=== PATIENT | female | born 1990 | race Caucasian/White ===

== ENCOUNTER 2018-09-27 08:14 | Inpatient (IN) | payer BC ==
[2018-09-27] MEDS ORDERED: PROMETHAZINE 25 MG/ML VIAL IM PRN (08:45)
[2018-09-27] MEDS ORDERED: METHYLERGONOVINE 0.2MG/ML AMP IM PRN (08:45)
[2018-09-27] MEDS ORDERED: CARBOPROST TROME 250 MCG/ML IM PRN (08:45)
[2018-09-27] MEDS ORDERED: Ringers Lactate 1,000 ML IV PRN (08:45)
[2018-09-27] MEDS ORDERED: BUTORPHANOL 1 MG/ML INJ IV PRN (08:45)
[2018-09-27] MEDS ORDERED: Ringers Lactate 1,000 ML IV SCH (09:00)
[2018-09-27] MEDS ORDERED: OXYTOCIN/LR 20 UNIT/1,000 ML BAG IV SCH ×2 (09:00→10:00)
[2018-09-27] MEDS ORDERED: IBUPROFEN 200 MG TAB PO PRN (09:23)
[2018-09-27] MEDS ORDERED: BISACODYL 10 MG RECTAL SUPP RECT PRN (09:23)
[2018-09-27] MEDS ORDERED: Oxycodone HCl/Acetaminophen 1 TAB TAB PO PRN ×2 (09:23)
[2018-09-27] MEDS ORDERED: ACETAMINOPHEN 500 MG TAB PO PRN (09:23)
[2018-09-27] MEDS ORDERED: DOCUSATE NA/SENNA CONC 1 TAB PO PRN (09:23)
[2018-09-27] MEDS ORDERED: DIPHENHYDRAMINE 25 MG TAB/CAP PO PRN (09:23)
[2018-09-27 10:03] VITALS: BMI 34.9
[2018-09-27] MEDS ORDERED: OXYTOCIN/LR 20 UNIT/1,000 ML BAG IV ONE (10:21)
[2018-09-27] MEDS ORDERED: LIDOCAINE 1% MPF 30 ML VIAL ONE (10:21)
[2018-09-27] MEDS ORDERED: METHYLERGONOVINE 0.2MG/ML AMP IM ONE (10:21)
[2018-09-27 11:54] LABS: RPR Titer ND
[2018-09-27 11:59] LABS: Absolute Lymphocytes (CBC) 0.9 K/uL (0.7-4.9); Basophils % 0.2 % (0-1.3); Eosinophils % 0.1 % (0-4.4); Hematocrit 44.9 % (36.0-45.0); Lymphocytes % 4.6 % (15.3-44.8); MPV 10.7 fL (7.6-11.3); Monocytes % 3.3 % (3.3-12.3); RBC Red Blood Cell Count 5.07 M/uL (3.86-4.86)
[2018-09-27] MEDS: METHYLERGONOVINE 0.2 MG TAB PO PRN ×3 (12:00→20:21)
[2018-09-27 12:54] LABS: Blood Morphology Comment NOT SEEN (NOT SEEN); Platelet Estimate ADEQ
--- NOTE | 2018-09-27 20:17 | OP ---
Surgeon: Jonny Steel MD A 28-year-old primigravida, patient of Dr. Larose, followed antepartum without complications. Rh positive, immune to Rubella. Negative beta strep screen. Came in yesterday with suspected rupture o f membranes, testing was negative. She was sent home. Came home this morning complete and on the pe rineum. FHTs normal, reactive. No signs of amnionitis. Second stage of approximately 25 to 30 jose andres. Spontaneous vaginal delivery of an estimated 6-pound plus or minus female. Apgars 9 and 9. Se cond degree midline laceration simulating episiotomy, repaired with 2-0 chromic after local infiltrat ion. Uterus mildly hypotonic, 0.2 mg of Methergine IM as well as IV drip Pitocin and massage. Estim ated blood loss 350 to 400 mL. The patient went completely natural and did quite well. Final Diagnoses: Intrauterine gestation, 37 weeks and 3 days, vaginal delivery, mild uterine hypoton us. KP/SHAHEED Voice ID: [id number] Report ID: [id number]
[2018-09-27 21:11] LABS: RPR (Rapid Plasma Reagin) NON-REACT (NON-REACT)
[2018-09-28] MEDS: METHYLERGONOVINE 0.2 MG TAB PO PRN (00:54)
[2018-09-28 07:58] VITALS: BP 117/70; TEMP 97.6
--- NOTE | 2018-09-28 22:16 | DS ---
This is a 28-year-old primigravida, at 37 weeks 3 days, who delivered an estimated 5-6 pounds female, Apgars 9 and 9. Small midline laceration simulating episiotomy repaired with 2-0 chromic under local infiltration. She also delivered the placenta, which was inspected and noted to be intact and normal. Mild uterine hypertonus, 0.2 mg of Methergine IM, as well as IV drip Pitocin and massage. Estimated blood loss 350 to 400 cc. Rh positive, immune to Rubella. Negative beta strep screen. ; afebrile, ambulating and voiding. Lochia is normal. She will be dismissed later today to report to Dr. Larose's office on Sunday for further instructions. Dismissal Instructions: She should report any temperature elevation of 100 degrees or greater, severe pain, heavy bleeding. Dismiss with tramadol for analgesia although she may elect to use Motrin instead. She has had her Tdap immunization. No reported problems this morning. Final Diagnoses: Intrauterine gestation, 37 weeks 3 days, vaginal delivery, mild uterine hypotonus. KP/SHAHEED Voice ID: [id number] Report ID: [id number]
[2018-09-30 11:45] LABS: HBsAG Nonreactive (Nonreactive)
--- NOTE | 2018-10-01 08:27 | PREOPHP ---
Date of Admission: 09/27/2018 This is a 28-year-old primigravida, at 37 weeks and 3-4 days was seen yesterday in Labor and Delivery , thought her membranes had ruptured. Examination by nurses at that time was thought to show no rupt ure of membranes. She was really not having contractions at that point. Was dismissed. Says she elvira t home and during the night had regular contractions, came back in to be evaluated again. She is com plete and +2 station. FHTs are normal and reactive. She is in very good control. Even with contrac tions she is not acting like she is in significant discomfort. Had planned to go natural and obvious ly she is just about accomplished that task. She is Rh positive, immune to Rubella. Negative beta s trep screen. Admission and labor talk given. Physical exam is basically unchanged. No problems wit h the heart and lungs. FHTs are normal and reactive and all her vital signs are normal range. Antic ipate vaginal delivery relatively soon. KP/SHAHEED Voice ID: [id number]
== END 2018-09-28 11:10 | disposition home or self-care (01) | DRG 807 ==
LOC: L&D 08:14 → 2ND-WC 08:36
PROVIDERS: ADMIT Specialist; ATTEND Specialist
PROC: 10E0XZZ Delivery of Products of Conception, External Approach (ICD-10-PCS; principal; 2018-09-27)
PROC: 0KQM0ZZ Repair Perineum Muscle, Open Approach (ICD-10-PCS; 2018-09-27)
DX: O70.1 Second degree perineal laceration during delivery (principal); Z37.0 Single live birth; O62.2 Other uterine inertia; Z3A.37 37 weeks gestation of pregnancy
CPT/HCPCS: 36415; 85025; 86592; 86901; 87340; 99218; J2210; J2590